=== PATIENT | female | born 1945 | race Caucasian/White ===

== ENCOUNTER → 2017-07-14 | Outpatient (CLI) | payer BC, MEDICARE ==
[~2017-07-14] MED LIST: IOHEXOL 180 MG/ML 10 ML VIAL.; methylPREDNISolone ACETATE 40 MG/ML VIAL.; methylPREDNISolone ACETATE 80 MG/ML VIAL.
== END | disposition home or self-care (01) ==
LOC: PNCL 13:54
DX: M48.061 Spinal stenosis, lumbar region without neurogenic claudication (principal); M54.16 Radiculopathy, lumbar region; M96.1 Postlaminectomy syndrome, not elsewhere classified; M19.90 Unspecified osteoarthritis, unspecified site; K21.9 Gastro-esophageal reflux disease without esophagitis; I10 Essential (primary) hypertension; Z88.1 Allergy status to other antibiotic agents
CPT/HCPCS: 62323; J1030; J1040; Q9965

== ENCOUNTER → 2017-10-14 | Outpatient (CLI) | payer BC, MEDICARE | END | disposition home or self-care (01) | LOC: PNCL 09:24 | DX: M48.061 Spinal stenosis, lumbar region without neurogenic claudication (principal); M54.16 Radiculopathy, lumbar region; M96.1 Postlaminectomy syndrome, not elsewhere classified; Z88.1 Allergy status to other antibiotic agents | CPT/HCPCS: 62323; J1030; J1040; Q9965 ==

== ENCOUNTER → 2017-11-20 | Outpatient (CLI) | payer BC, MEDICARE ==
[~2017-11-20] MED LIST changes: +LIDOCAINE 1% PF 2 ML VIAL.
== END ==
LOC: PNCL 07:58
DX: M54.16 Radiculopathy, lumbar region (principal); M96.1 Postlaminectomy syndrome, not elsewhere classified; Z88.1 Allergy status to other antibiotic agents
CPT/HCPCS: 62323; J1030; J1040; Q9965

== ENCOUNTER → 2017-12-21 | Outpatient (CLI) | payer BC, MEDICARE ==
[2017-12-21] MEDS: LIDOCAINE WITH 8.4% SOD BICARB 3 ML DISP.SYRIN. INJ (14:05)
[2017-12-21] MEDS: IOHEXOL 180 MG/ML 10 ML VIAL. IT (14:05)
== END | disposition home or self-care (01) ==
LOC: RAD 13:59
DX: M43.16 Spondylolisthesis, lumbar region (principal); M48.061 Spinal stenosis, lumbar region without neurogenic claudication; M48.07 Spinal stenosis, lumbosacral region; I10 Essential (primary) hypertension; K21.9 Gastro-esophageal reflux disease without esophagitis
CPT/HCPCS: 72132; 72265; Q9965

== ENCOUNTER → 2018-02-10 | Outpatient (CLI) | payer BC, MEDICARE ==
[2017-12-21 15:03] VITALS: BP 114/64
[~2018-02-10] MED LIST changes: +AMLO1TAB2 PO; +BYSTOLIC5 MG PO; +CALC-31 PO; +CELE100C PO; +CHOL10003 PO; +DULO60CA6 PO; +ESOM40CA PO; -IOHEXOL 180 MG/ML 10 ML VIAL.; +IOHEXOL 180 MG/ML 10 ML VIAL. ONE; -LIDOCAINE 1% PF 2 ML VIAL.; +LIDOCAINE 2% PF 2ML VIAL. ONE; +LOSA1TAB2 PO; +MELO15TA23 PO; +METH2.5T PO; +SPIR25TA5 PO; +TRAZ-85 PO; -methylPREDNISolone ACETATE 40 MG/ML VIAL.; +methylPREDNISolone ACETATE 40 MG/ML VIAL. ONE; -methylPREDNISolone ACETATE 80 MG/ML VIAL.; +methylPREDNISolone ACETATE 80 MG/ML VIAL. ONE
--- NOTE | 2018-02-10 19:41 | PAIN ---
DATE OF SERVICE: 02/10/2018 PROGRESS NOTE FOR PAIN CLINIC DIAGNOSIS: Lumbar radiculopathy with lumbar spinal stenosis and post-lumbar laminectomy syndrome. HISTORY OF PRESENT ILLNESS: The patient is a 72-year-old female who returns for followup status post caudal epidural steroid injections x 3, last seen on 11/20/2017. The patient did very well, nearly 100% improvement for a full month after the last injection. The patient reports the pain is beginning to return now in the low back and into the right lower extremity, more in the posterior gluteus, posterior thigh, posterior calf on the right side and across the low back into the left hip and thigh as well. The patient reports it is tingling, burning, dull, shooting, radiating, becoming more intense, on and off, worse with inactivity. The patient reports it is a 9 on a scale of 10 at its worst, 6 on average, 4 at its least and is a 4 today. The patient reports no new motor or sensory deficits, no new bowel or bladder incontinence. Originally, she was doing much better with increasing activity with walking, household activities with greater ease and comfort, feeling better at night, now it is waking her about every 4-5 hours. She has to reposition and she can usually get back to sleep. The patient reports no new motor or sensory deficits, no new bowel or bladder incontinence. The patient did have a new myelogram showing previous surgical fusion and L5-S1 bilateral foraminal narrowing. PHYSICAL EXAMINATION: VITAL SIGNS: Today, the patient's blood pressure 124/71, pulse 75, respirations are 18, temperature 98.1 degrees Fahrenheit. Height is 5 feet 4 inches, weight is 184 pounds. GENERAL: The patient is awake, alert, oriented, appropriate, very pleasant demeanor. HEENT: Head shows normocephalic, atraumatic. Extraocular movements are intact and symmetrical. Oral cavity, mucous membranes are moist and pink. Dentition is intact. NECK: Shows anterior throat supple without palpable lymphadenopathy noted. Swallow reflex is symmetrical. CHEST: Shows normal on inspection. Breath sounds are clear to auscultation bilaterally. HEART: Shows S1, S2 clear. No murmurs auscultated. ABDOMEN: Soft, nontender, nondistended. No palpable organomegaly is noted. No rebound or guarding demonstrated. BACK: Shows spine grossly in the midline. Normal appearing thoracic kyphosis and some flattening of lumbar lordotic curvature. There is a well-healed surgical scar in the lumbar distribution noted. The patient's lumbar paraspinous muscle shows symmetrical on inspection, on palpation shows some moderate tenderness but only diffusely without radiation. The patient shows good rotational motion of lumbar spine, both laterally as well as extension and flexion without significant radiation or tenderness. EXTREMITIES: The patient's lower extremities show deep tendon reflexes at 1+ in the patellar and tendo-calcaneus tendons and are equal. Motor exam is strong with 5/5 dorsiflexion, extension, quadriceps and hamstring flexion and symmetrical. Peripheral pulses are 1+ posterior tibia. No peripheral edema is noted bilaterally. Options were discussed with the patient. The patient's old chart was reviewed as her current medication regimen updated. Current review of systems updated today as well. We will proceed with a caudal approach epidural steroid injection today, it is the first in the series. Risks were again discussed including, but not limited to bleeding, infection, possibility of epidural hematoma and subsequent neurological compromise, dural puncture, headaches, spinal cord and/or nerve damage, side effects of steroid medication and poor results regarding pain control. The patient understands and wished to proceed. The patient will return to the clinic in approximately 2 weeks for followup, was counseled on return appointment, activity level and side effects to be aware of. DIAGNOSIS: Lumbar radiculopathy with lumbar spinal stenosis and lumbar post-laminectomy syndrome. PROCEDURE: Lumbar epidural steroid injection, caudal approach using C-arm fluoroscopic guidance under sterile prep and drape using local anesthetic. MEDICATION INJECTED: A total of 120 mg Depo-Medrol plus 10 mL of preservative-free normal saline and 2 mL of Isovue for contrast. CONDITION AT DISCHARGE: Stable. The patient tolerated the procedure well, had no complications. ROBER NAVARRO MD DR: LATIA/kathleen JOB#: [id number] / [id number]
== END | disposition home or self-care (01) ==
LOC: PNCL 10:41
PROVIDERS: ATTEND Anesthesiology
DX: M48.061 Spinal stenosis, lumbar region without neurogenic claudication (principal); M96.1 Postlaminectomy syndrome, not elsewhere classified; Z88.1 Allergy status to other antibiotic agents
CPT/HCPCS: 62323; J1030; J1040; J2001; Q9965

== ENCOUNTER → 2018-04-30 | Outpatient (CLI) | payer BC, MEDICARE ==
[2017-12-21 15:03] VITALS: BP 114/64
[~2018-04-30] MED LIST changes: -LIDOCAINE 2% PF 2ML VIAL. ONE
--- NOTE | 2018-04-30 12:16 | PAIN ---
DATE OF SERVICE: 04/30/2018 PROGRESS NOTE FOR PAIN CLINIC DIAGNOSES: Lumbar radiculopathy with lumbar spinal stenosis, lumbar post-laminectomy syndrome. HISTORY OF PRESENT ILLNESS: The patient is a 72-year-old female who returns for followup status post lumbar epidural steroid injection, caudal approach x 1 on 02/10/2018. The patient did very well with about 80% improvement for about a month. The patient reports after that time, the pain returned in her low back and right lower extremity, radiating to the posterior lateral and anterior aspects of the gluteus, posterior calf, posterior thigh, lateral thigh, anterior calf as well as the lower leg anteriorly. The patient reports it is aching, dull, shooting, tingling, burning, radiating, becoming more severe with time. The patient reports the first month or so, it is very well and then the pain gradually returned. The patient reports it wakes her from sleep about every 4 hours, she can usually reposition and get back to sleep. The patient reports no new motor or sensory deficits, rates her pain as a 9 on a scale of 10 at its worst, 6 on average and 3 at its least and is a 6 today. The patient reports no new motor or sensory deficits, no bowel or bladder incontinence. PHYSICAL EXAMINATION: VITAL SIGNS: The patient's blood pressure is 127/57, pulse 80, respirations 18, temperature 97.5 degrees Fahrenheit, height 5 feet 5 inches, weighs 184 pounds. GENERAL: The patient is awake, alert, oriented, appropriate, very pleasant demeanor. HEENT: Head shows normocephalic, atraumatic. Extraocular movements intact and symmetrical. Oral cavity: Mucous membranes moist and pink. Dentition is intact. NECK: Shows anterior throat supple without palpable lymphadenopathy noted. Swallow reflex is symmetrical. CHEST: Shows normal on inspection. Breath sounds clear to auscultation bilaterally. HEART: Shows S1, S2 clear. No murmurs auscultated. ABDOMEN: Soft, nontender, nondistended. No palpable organomegaly is noted. No rebound or guarding demonstrated. BACK: Shows spine grossly in the midline, normal appearing thoracic kyphosis and lumbar lordotic curvature. Lumbar paraspinous muscle shows symmetrical on inspection, on palpation shows some moderate tenderness diffusely bilaterally, but only diffusely in the lower lumbar distribution. Well-healed surgical scar is noted. The patient has good rotational motion of lumbar spine, both laterally as well as extension and flexion without significant difficulty. EXTREMITIES: The patient's lower extremities show deep tendon reflexes 1+ in the patellar and tendo-calcaneus tendons are equal. Motor examination is 5/5 in dorsiflexion, extension and symmetrical. Peripheral pulses are 1+ posterior tibia. No peripheral edema is noted bilaterally. PLAN: Options were discussed with the patient. The patient's old chart was reviewed as her current medication regimen updated. Current review of systems updated today as well. We will proceed with a second in the series of lumbar epidural steroid injection, caudal approach using C-arm fluoroscopic guidance. Risks were again discussed including, but not limited to bleeding, infection, possibility of epidural hematoma, subsequent neurological compromise, dural puncture, headaches, spinal cord and/or nerve damage, side effects of steroid medication and poor results regarding pain control. The patient understands and wished to proceed. The patient to return to clinic in approximately 2 weeks for followup, was counseled on return appointment, activity level and side effects to be aware of. DIAGNOSES: Lumbar radiculopathy with lumbar spinal stenosis, post-lumbar laminectomy syndrome. PROCEDURE: Caudal approach epidural steroid injection using C-arm fluoroscopic guidance under sterile prep and drape using local anesthetic. MEDICATION INJECTED: A total of 120 mg Depo-Medrol plus 10 mL of preservative-free normal saline and 2 mL of Isovue for contrast. CONDITION AT DISCHARGE: Stable. The patient tolerated the procedure well, had no complications. ROBER NAVARRO MD DR: LATIA/kathleen JOB#: [id number] / [id number]
== END | disposition home or self-care (01) ==
LOC: PNCL 07:41
PROVIDERS: ATTEND Anesthesiology
DX: M48.02 Spinal stenosis, cervical region (principal); M54.16 Radiculopathy, lumbar region; M96.1 Postlaminectomy syndrome, not elsewhere classified; Z88.1 Allergy status to other antibiotic agents
CPT/HCPCS: 62323; J1030; J1040; Q9965

== ENCOUNTER → 2018-06-16 | Outpatient (CLI) | payer BC, MEDICARE ==
[2017-12-21 15:03] VITALS: BP 114/64
[~2018-06-16] MED LIST changes: +ATOR20TA PO; +DOCU-109 PO; +HYDR-3164 PO; +LIDOCAINE ID; +METH25VI27 IJ; +METH750T2 PO; +OXYC1TAB15 PO; +TRAZ-118 PO; -TRAZ-85 PO
--- NOTE | 2018-06-16 09:43 | PAIN ---
DATE OF SERVICE: 06/16/2018 DIAGNOSES: 1. Lumbar radiculopathy with lumbar spinal stenosis. 2. Post-lumbar laminectomy syndrome. HISTORY OF PRESENT ILLNESS: This patient is a 73-year-old female who returns for followup status post caudal epidural steroid injection x 2, last seen on 04/30/2018. The patient did very well with about 90% improvement for the first month, then the pain began to return in the low back and into the right greater than left lower extremity. The patient reports it is in the posterior gluteus, posterior thigh, lateral thigh, anterior thigh, posterior calf, posterior heel and foot. The patient reports it is 9 on a scale of 10 at its worst, 6 on an average, 3 at its least and is 6 today. The patient reports it is sharp and alternating with dull in the back and into the leg. It is tingling, burning, cramping, radiating, becoming more severe; worse with walking, standing, changing positions; better with sitting or lying down; does not awaken her from sleep at night. The patient reports no new motor or sensory deficits, no new bowel or bladder incontinence or other complaints. PHYSICAL EXAMINATION: VITAL SIGNS: The patient's blood pressure is 131/73, pulse 68, respirations 18, temperature is 98.7 degrees Fahrenheit. Height is 5 feet 5 inches, weight is 180 pounds. GENERAL: She is awake, alert, oriented, appropriate, very pleasant demeanor. HEENT: Head shows normocephalic, atraumatic. Extraocular movements are intact and symmetrical. Oral cavity: Mucous membranes moist and pink. Dentition is intact. NECK: Shows anterior throat supple without palpable lymphadenopathy noted. Swallow reflex is symmetrical. CHEST: Shows normal with inspection. Breath sounds clear to auscultation bilaterally. HEART: Shows S1, S2 clear. No murmurs auscultated. ABDOMEN: Soft, nontender, nondistended. No palpable organomegaly is noted. No rebound or guarding demonstrated. BACK: Shows spine grossly in the midline. Normal-appearing thoracic kyphosis and lumbar lordotic curvature with flattening of lordotic curvature. Lumbar paraspinous muscle shows symmetrical on inspection, well-healed surgical scar is noted; with palpation, it shows some moderate tenderness diffusely bilaterally in the lumbar paraspinous muscles, but only diffusely without radiation, right and left equal, no trigger points. The patient shows good rotation of motion both laterally as well as extension and flexion without exacerbation of pain. EXTREMITIES: Lower extremities show deep tendon reflexes 1+ in the patellar and tendo calcaneus tendons and are equal. Motor exam is strong with 5/5 dorsiflexion, extension, quadriceps and hamstring flexion, symmetrical bilaterally. Peripheral pulses are 1+ posterior tibia. No peripheral edema is noted. Options were discussed with the patient. The patient's old chart was reviewed as was her current medication regimen updated. Current review of systems updated today as well. We will proceed with a third in the series of caudal epidural steroid injection using C-arm fluoroscopic guidance. Risks were again discussed including, but not limited to bleeding, infection, possibility of epidural hematoma, subsequent neurologic compromise, dural puncture, headaches, spinal cord and/or nerve damage, side effects of steroid medication and poor results regarding pain control. The patient understands and wished to proceed. The patient to return to clinic in approximately 2 weeks for followup, was counseled as to return appointment, activity level and side effects to be aware of. DIAGNOSES: . Lumbar radiculopathy with lumbar spinal stenosis. 2. Post-lumbar laminectomy syndrome. PROCEDURE: Caudal approach epidural steroid injection using C-arm fluoroscopic guidance under sterile prep and drape using local anesthetic. MEDICATION INJECTED: A total of 120 mg Depo-Medrol plus 10 mL of preservative-free normal saline and 2 mL of Isovue for contrast. CONDITION AT DISCHARGE: Stable. The patient tolerated the procedure well, had no complications. ROBER NAVARRO MD DR: LATIA/kathleen JOB#: [id number] / [id number]
== END | disposition home or self-care (01) ==
LOC: PNCL 08:54
PROVIDERS: ATTEND Anesthesiology
DX: M48.061 Spinal stenosis, lumbar region without neurogenic claudication (principal); M54.16 Radiculopathy, lumbar region; M96.1 Postlaminectomy syndrome, not elsewhere classified; Z88.1 Allergy status to other antibiotic agents
CPT/HCPCS: 62323; J1030; J1040; Q9965

== ENCOUNTER → 2018-08-25 | Outpatient (CLI) | payer BC, MEDICARE ==
[2017-12-21 15:03] VITALS: BP 114/64
[~2018-08-25] MED LIST changes: -IOHEXOL 180 MG/ML 10 ML VIAL. ONE; -methylPREDNISolone ACETATE 40 MG/ML VIAL. ONE; -methylPREDNISolone ACETATE 80 MG/ML VIAL. ONE
--- NOTE | 2018-08-26 04:02 | PAIN ---
DATE OF SERVICE: 08/25/2018 PROGRESS NOTE FOR PAIN CLINIC DIAGNOSES: Lumbar radiculopathy with lumbar spinal stenosis, lumbar post-laminectomy syndrome. HISTORY OF PRESENT ILLNESS: The patient is a 73-year-old female who returns for followup status post lumbar epidural steroid injection in caudal approach most recently on 06/16/2017. The patient did well, but 100% improved for about 3 weeks, but the pain returned after that time in the low back, bilateral lower extremities, worse on the right than the left posterior gluteus, radiating to the posterior thigh, posterior calf into the ankle on the right side, some in the posterior gluteus and thigh on the left, but much worse on the right. The patient reports a 9-10 on a scale of 10 at its worst, 7 on average, 4 at its least and is a 7 today. The patient describes it as burning, stabbing, sharp, becoming more constant, more severe, radiated pain in the right leg. The patient reports no new motor or sensory deficits, no new bowel or bladder incontinence, has been waking her up from sleep once again. Initially, she was doing much better with distance walking and doing work and household activities, greater increase in ease with traveling, now the pain is beginning to limit some of these activities as well. The patient reports she is feeling somewhat ill to her stomach over the past 2-3 days and has been around a friend who had the flu and is indeed running a low-grade fever today and would like to hold on any further injections at this time. PHYSICAL EXAMINATION: VITAL SIGNS: The patient's blood pressure is 131/69, pulse 66, respirations 16, temperature 99.1 degrees Fahrenheit, height is 5 feet 3-1/2 inches and weight is 181 pounds. GENERAL: The patient is awake, alert, oriented, appropriate, very pleasant demeanor. HEENT: Head is normocephalic, atraumatic. Extraocular muscles are intact and symmetrical. Oral cavity: Mucous membranes moist and pink. Dentition is intact. NECK: Shows anterior throat supple without palpable lymphadenopathy noted. Swallow reflex is symmetrical. CHEST: Shows normal on inspection. Breath sounds are clear to auscultation bilaterally. HEART: Shows S1, S2 clear. No murmurs auscultated. ABDOMEN: Soft, nontender, nondistended. No palpable organomegaly is noted. No rebound or guarding demonstrated. BACK: Shows spine grossly in the midline. Normal appearing thoracic kyphosis, significant flattening of lumbar lordotic curvature. Well-healed surgical scarring noted, which is fairly extensive. Lumbar paraspinous muscle shows symmetrical on inspection grossly, with palpation has diffuse tenderness throughout the upper, middle, lower distribution of paraspinous muscles, but without radiation. EXTREMITIES: Lower extremities show deep tendon reflexes 1+ in patellar and tendo-calcaneus tendons. Motor exam is 5/5 in dorsiflexion, extension, quadriceps and hamstring flexion and intact. Peripheral pulses are 1+ in posterior tibial. No peripheral edema is noted. Options were discussed with the patient. The patient's old chart was reviewed as her current medication regimen updated. Current review of systems updated today as well. We will have the patient return in about 2 days for reevaluation and hopefully lower or afebrile at that time. Again, the patient is feeling ill for the past 2 to 3 days, would like to wait and see how she feels in another few days and I agree this may be beneficial for her feeling better overall and would like to see her afebrile prior to proceeding with any procedures. The patient will return to the clinic in approximately 2 days. Tentatively, we will call if still febrile or ill at that time and will plan on epidural steroid injection on her return. ROBER NAVARRO MD DR: LATIA/kathleen JOB#: [id number] / [id number]
== END | disposition home or self-care (01) ==
LOC: PNCL 11:38
PROVIDERS: ATTEND Anesthesiology
DX: M54.16 Radiculopathy, lumbar region (principal); M48.061 Spinal stenosis, lumbar region without neurogenic claudication; M96.1 Postlaminectomy syndrome, not elsewhere classified
CPT/HCPCS: G0463

== ENCOUNTER → 2018-08-27 | Outpatient (CLI) | payer BC, MEDICARE ==
[2017-12-21 15:03] VITALS: BP 114/64
[~2018-08-27] MED LIST changes: +IOHEXOL 180 MG/ML 10 ML VIAL. ONE; +methylPREDNISolone ACETATE 40 MG/ML VIAL. ONE; +methylPREDNISolone ACETATE 80 MG/ML VIAL. ONE
--- NOTE | 2018-08-28 05:13 | PAIN ---
DATE OF SERVICE: 08/27/2018 PROGRESS NOTE FOR PAIN CLINIC DIAGNOSES: Lumbar radiculopathy with lumbar spinal stenosis and lumbar post-laminectomy syndrome. HISTORY OF PRESENT ILLNESS: The patient is a 73-year-old female who returns for followup status post lumbar caudal approach epidural steroid injection most recently in 06/2017. The patient reports since her pain is coming back, she is considering surgery for her lumbar spine. There is still significant pain in her low back, currently into the right lower extremity, posterior gluteus, posterior thigh, posterior calf into the foot on the right side as well. It is worse with walking, standing or changing positions. The patient reports it is better with sitting or lying down. It awakens her from sleep about every 5 hours. However, the patient reports it is a 9 on a scale of 10 at its worst, 6 on average and 3 at its least and I is a 3 today. The patient reports it is sharp, shooting, tingling, burning, cramping, stabbing, constant, becoming more severe and more radiating, but otherwise, it is very well with the injections, with about a 100% improvement for several weeks after the last injection, with pain returning now over the past several months. The patient reports no new motor or sensory deficits, no new bowel or bladder incontinence or other complaints. PHYSICAL EXAMINATION: VITAL SIGNS: The patient's blood pressure is 133/68, pulse is 76, respirations are 16 and temperature is 98.1 degrees Fahrenheit. Height is 5 feet 3 inches. GENERAL: The patient is awake, alert, oriented and appropriate. She has a very pleasant demeanor. HEENT EXAMINATION: Shows normocephalic, atraumatic. Extraocular movements are intact and symmetrical. Oral cavity, mucous membranes are moist and pink. Dentition is intact. NECK: Shows anterior throat supple, without palpable lymphadenopathy noted. Swallow reflex is symmetrical. CHEST: Shows normal on inspection. Breath sounds are clear to auscultation bilaterally. HEART: Shows S1 and S2 clear. No murmurs auscultated. ABDOMEN: Soft, nontender and nondistended. No palpable organomegaly is noted. No rebound or guarding demonstrated. BACK: Shows spine grossly in the midline. Normal-appearing thoracic kyphosis, some minor flattening of the lumbar lordotic curvature. Lumbar paraspinous muscle shows symmetrical on inspection. On palpation, it shows some moderate tenderness bilaterally, but only diffusely in the lower lumbar distribution, without radiation. The patient shows good rotational motion of the lumbar spine, both laterally as well as extension and flexion. EXTREMITIES: Lower extremities show deep tendon reflexes at 1+ in the patellar and tendo calcaneus tendons. Motor exam is strong with 5/5 dorsiflexion, extension, quadriceps and hamstring flexion and is equal and symmetrical. Peripheral pulses are 1+ posterior tibial. No peripheral edema is noted bilaterally. Options were discussed with the patient. The patient's old chart was reviewed as was her current medication regimen updated. Current review of systems updated today as well. We will proceed with caudal approach epidural steroid injection today with fluoroscopic guidance, the first in this series. Risks were again discussed including, but not limited to bleeding, infection, possibility of epidural hematoma, subsequent neurological compromise, dural puncture, headaches, spinal cord and/or nerve damage, side effects of steroid medication and poor results regarding pain control. The patient understands and wishes to proceed. The patient will return to clinic in approximately 2 weeks for followup. She was counseled on her return appointment, activity level and side effects to be aware of. DIAGNOSES: Lumbar radiculopathy with lumbar spinal stenosis and lumbar post-laminectomy syndrome. PROCEDURE: Caudal approach epidural steroid injection using C-arm fluoroscopic guidance under sterile prep and drape using local anesthetic. MEDICATION INJECTED: A total of 120 mg Depo-Medrol plus 10 mL of preservative-free normal saline and 2 mL of Isovue for contrast. CONDITION AT DISCHARGE: Stable. The patient tolerated the procedure well, had no complications. ROBER NAVARRO MD DR: LATIA/kathleen JOB#: [id number] / [id number]
== END | disposition home or self-care (01) ==
LOC: PNCL 11:34
PROVIDERS: ATTEND Anesthesiology
DX: M48.061 Spinal stenosis, lumbar region without neurogenic claudication (principal); M96.1 Postlaminectomy syndrome, not elsewhere classified; M54.16 Radiculopathy, lumbar region; Z88.1 Allergy status to other antibiotic agents
CPT/HCPCS: 62323; J1030; J1040; Q9965

== ENCOUNTER → 2018-09-23 | Outpatient (CLI) | payer BC, MEDICARE ==
[2017-12-21 15:03] VITALS: BP 114/64
[~2018-09-23] MED LIST changes: -IOHEXOL 180 MG/ML 10 ML VIAL. ONE; -methylPREDNISolone ACETATE 40 MG/ML VIAL. ONE; -methylPREDNISolone ACETATE 80 MG/ML VIAL. ONE
--- NOTE | 2018-09-23 15:05 | EKG ---
[facility] [address] [place] [address] Test Date: 2018-09-23 Test Time: 15:04:30 Pat Name: DYLON JESSICA Department: Room: Gender: F Under [facility]: [facility] : 1945 Requested By: RAJ URBINA Order Number: [id number] Reading MD: Justo Baltazar Measurements Intervals [place] Rate: 69 P: 52 [place]: 188 QRS: -18 QRSD: 78 T: 31 QT: 376 QTc: 404 Interpretive Statements SINUS RHYTHM LEFTWARD AXIS Electronically Signed On 09-28-2018 11:15:06 CDT by Justo Baltazar
[2018-09-23 15:10] LABS: BASO % 1 % (0-3); EOS # 0.2 x10^3/uL (0.0-0.7); EOS % 2 % (0-3); HEMATOCRIT 35.8 % (36.0-47.0); HEMOGLOBIN 12.2 g/dL (12.0-15.5); LYMPH # 1.4 x10^3/uL (1.0-4.8); LYMPH % 17 % (24-48); MEAN CORPUSCULAR HEMOGLOBIN 30 pg (25-35); MEAN CORPUSCULAR HGB CONC 34 g/dL (31-37); MEAN CORPUSCULAR VOLUME 89 fL (79-100); MONO # 0.7 x10^3/uL (0.0-1.1); MONO % 8 % (0-9); NEUT % 73 % (31-73); PLATELET COUNT 335 x10^3/uL (140-400); RED BLOOD COUNT 4.05 x10^6/uL (3.50-5.40); RED CELL DISTRIBUTION WIDTH 13.6 % (11.5-14.5); WHITE BLOOD COUNT 8.3 x10^3/uL (4.0-11.0)
[2018-09-23 15:24] LABS: PROTHROMBIN TIME PATIENT 12.4 SEC (11.7-14.0)
[2018-09-23 15:36] LABS: ALBUMIN 3.6 g/dL (3.4-5.0); ALBUMIN/GLOBULIN RATIO 1.1 (1.0-1.7); CALCIUM 9.4 mg/dL (8.5-10.1); CREATININE 1.4 mg/dL (0.6-1.0); POTASSIUM 3.7 mmol/L (3.5-5.1); TOTAL BILIRUBIN 0.3 mg/dL (0.2-1.0)
== END | disposition home or self-care (01) ==
LOC: SURGPAT 13:36
PROVIDERS: ATTEND Neurological Surgery
DX: Z01.818 Encounter for other preprocedural examination (principal); M43.16 Spondylolisthesis, lumbar region; M54.16 Radiculopathy, lumbar region; M96.0 Pseudarthrosis after fusion or arthrodesis
CPT/HCPCS: 36415; 80053; 85025; 85610; 85730; 87641; 93005

== ENCOUNTER 2018-09-30 06:22 | Inpatient (IN) | payer BC, MEDICARE ==
--- NOTE | 2018-09-29 16:30 | PREOP HP ---
DATE OF SERVICE: 09/30/2018. DATE OF SURGERY: 09/30/2018. HISTORY OF PRESENT ILLNESS: The patient is a pleasant 73-year-old who I have operated on in the past. I performed a lumbar surgery on her in 2011. In 2014, she underwent a fusion at . I saw her in 05/2018 and recommended revision of her fusion at L4-L5. Her problem is low back pain and right anterolateral thigh and leg pain. She said her pain had become much more severe in 06/2017. She currently rates her pain as a 5/10. Lying down increases her pain. Walking helps her. She has had epidural steroid injections recently, which she feels has helped her some. PAST MEDICAL HISTORY: Hypertension, arthritis, headache, heart murmur, artificial joint, mitral valve prolapse. PAST SURGICAL HISTORY: Lumbar surgery in 2011 by me, carpal tunnel release, hysterectomy, lumbar fusion at in 2014. FAMILY HISTORY: Hypertension, migraine headaches and spine problems. SOCIAL HISTORY: She is employed as an movie editor. . Rarely exercises. Denies substance abuse. Denies tobacco use. Drinks alcohol 1-2 times per week. Drinks coffee and tea daily. ALLERGIES: PENICILLIN. CURRENT MEDICATIONS: Aleve, calcium, vitamin D3, omega-3, trazodone, Nexium, Caduet, spironolactone, Hyzaar, meloxicam, Cymbalta, Bystolic, gabapentin and glycopyrrolate. REVIEW OF SYSTEMS: A 12-point review of systems was obtained and is noncontributory except for that mentioned above. PHYSICAL EXAMINATION: NEUROSURGERY EXAMINATION: GENERAL APPEARANCE: Alert, pleasant, no acute distress. HEAD: Normocephalic and atraumatic. SKIN: Warm and dry. MUSCULOSKELETAL: Lumbar paraspinal muscle bulk is normal, restricted range of motion of lumbar spine, vlwh-fu-[id number] tenderness of the lower lumbar spine to palpation, especially on the right. Normal range of motion of the lower extremities bilaterally. EXTREMITIES: No clubbing, cyanosis or edema. NEUROLOGIC: Alert and oriented x 3, normal recent and remote memory, strength 5/5 in bilateral lower extremities. There is normal sensation in her lower extremities. She has trace reflexes at the knees and ankles bilaterally. There is positive straight leg raising on the right with back and right buttock and posterior thigh pain. There is negative straight leg raising on the left. Normal gait. IMAGING: I reviewed her images from her previous MRI scan, which there is a small grade 1 anterolisthesis in postoperative images. I reviewed a lumbar myelogram from 11/2017, in which the amount of spondylosis has increased markedly from her previous MRI and now measures 8 mm. The spondylolisthesis changes from 6-8 mm when comparing flexion and extension views. There does appear to be some rounding of the L5 screws. There is poor filling of the L5 roots bilaterally. Additionally, I reviewed flexion and extension x-rays. There are no significant changes at L4-L5; however, at L5-S1, there is worsening of an anterolisthesis, which does appear to have motion when comparing with the upright plain x-ray with supine MRI. PLAN: At this point, I believe she has motion and pseudoarthrosis at L4-L5 and L5-S1. She will require revision of her instrumentation at L4-L5 and L5-S1 with an anterior discectomy and fusion from an anterolateral oblique approach. She will also have posterolateral fusion. I did discuss this with her. At this point, she would like to go ahead. We will make the arrangements. She agrees. RAJ URBINA MD DR: MARGARITA/kathleen JOB#: [id number] / [id number] CAROL ANN
[~2018-09-30] VITALS: Ht 160 cm; Wt 82.6 kg
[2018-09-30] VITALS (8 sets, daily range): BP systolic 82–131; BP diastolic 49–68
[~2018-09-30 06:22] MED LIST changes: +BACITRACIN 50,000 UNIT in IV NORMAL SALINE 1000ML BAG 1,000 ML IRR ONE; +BUPIVAC MPF-EPI 0.5%-1:200000 30 ML VIAL. ONE; -DULO60CA6 PO; +GELATIN SPONGE SIZE 100. ONE; +KETOROLAC 60 MG/2 ML INJ FOR OR. ONE; -METH750T2 PO; -OXYC1TAB15 PO; +THROMBIN TOPICAL 20,000 UNIT SPRAY.SYRN KIT TP ONE; +VANCOMYCIN 1GM IVPB FOR OMNI 250 ML IV PRN
[2018-09-30] MEDS ORDERED: ONDANSETRON PF 4 MG/2 ML VIAL. IV PRN ×2 (07:00→10:00)
[2018-09-30] MEDS ORDERED: IV RINGERS,LACTATED 1000ML 1,000 ML IV SCH (07:00)
[2018-09-30] MEDS ORDERED: fentaNYL PF VIAL 100 MCG/2 ML VIAL IV PRN ×2 (07:00→10:00)
[2018-09-30] MEDS ORDERED: PROPOFOL 100 ML IV ONE ×2 (07:12→11:56)
[2018-09-30] MEDS ORDERED: VANCOMYCIN 1GM IVPB FOR OMNI. ONE (08:00)
[2018-09-30] MEDS ORDERED: PHENYLEPHRINE in 0.9% NACL PF 1 MG/10 ML SYRINGE. IV ONE (08:16)
[2018-09-30] MEDS ORDERED: PROPOFOL 20 ML IV ONE (08:18)
[2018-09-30] MEDS ORDERED: ONDANSETRON PF 4 MG/2 ML VIAL. ONE (08:19)
[2018-09-30] MEDS ORDERED: DEXAMETHASONE SOD PHOS 20 MG/5 ML VIAL. ONE ×2 (08:19→13:43)
[2018-09-30] MEDS ORDERED: fentaNYL PF VIAL 100 MCG/2 ML VIAL ONE ×3 (08:19→14:06)
[2018-09-30] MEDS ORDERED: REMIFENTANIL 2 MG VIAL. IV ONE (08:19)
[2018-09-30] MEDS ORDERED: LIDOCAINE 2% PF 5 ML VIAL. ONE (08:19)
[2018-09-30] MEDS ORDERED: SUCCINYLCHOLINE 200 MG/10 ML VIAL. ONE (08:21)
[2018-09-30] MEDS ORDERED: ROCURONIUM 50 MG/5 ML VIAL. ONE (08:21)
[2018-09-30] MEDS ORDERED: GELATIN SPONGE SIZE 100. ONE (08:45)
[2018-09-30] MEDS ORDERED: DESFLURANE > 120 MINUTES IH ONE ×2 (09:01→13:24)
[2018-09-30] MEDS ORDERED: KETAMINE HCL IN NACL, ISO-OSM 50 MG/5 ML SYRINGE ONE (09:04)
--- NOTE | 2018-09-30 09:20 | RAD ---
CT LUMBAR SPINE WO CONTRAST Indication: Low back pain, pseudarthrosis, spondylosis, previous lumbar fusion Technique: Noncontrast CT imaging was performed of the lumbar spine for the purpose of assistance in surgery, multiplanar reconstruction images submitted. One or more of the following individualized dose reduction techniques were utilized for this examination: 1. Automated exposure control 2. Adjustment of the mA and/or kV according to patient size 3. Use of iterative reconstruction technique. Comparison: December 21, 2017 Findings: Most inferior fully formed intervertebral disc space is considered L5-S1, assumption of 5 lumbar type vertebral bodies. There is grade 1 anterior spondylolisthesis at what is considered L4-5 and negligible anterior spondylolisthesis at L5-S1. There are again bilateral pedicle screws at what is considered L4 and L5 attached to vertical rods. Tip of the left L5 pedicle screw protrudes just beyond the anterior cortex as seen previously, also very mild lucency about the left L5 pedicle screw unchanged. Lumbar vertebral body stature is unchanged, within normal limits. There is again moderate to severe narrowing of the L4-5 intervertebral disc space, mild L5-S1 degenerative disc disease with associated vacuum disc disease. There is also mild L2-3 degenerative disc disease. There is atherosclerotic calcification of abdominal aorta. There is artifact in the pelvis created by bilateral hip arthroplasties. There is exophytic lesion protruding medially from the spleen otherwise difficult to characterize estimated about 2.3 cm in size, does not have density characteristics of a simple cyst. L2-3: There is facet degenerative change and mild buckling of the ligamentum flavum. Spinal canal and neural foramina are not significantly narrowed. L3-L4: There is again bilateral facet hypertrophic change and mild buckling of the ligamentum flavum flavum. There is prominence of posterior epidural fat. There is likely mild narrowing of the left lateral recess from posteriorly by facet. Neural foramina are not significantly narrowed. L4-L5: There again has been posterior decompression, spinal canal not significantly narrowed. There is partial uncovering of the posterior aspect of the disc due to spondylolisthesis. There is likely owfp-df-topwduoy narrowing of the more distal right neural foramen, minimal narrowing on the left, bulge near the undersurfaces exiting L4 nerve roots bilaterally. L5-S1: There again has been posterior decompression. There is facet hypertrophic change. Spinal canal is overall adequate. There is posterior bulge somewhat greater in the left lateral recess. There is ufyp-nv-mitygsxt narrowing of the right neural foramen, also contact of the undersurface of exiting right L5 nerve root in the more distal neural foramen by disc osteophyte complex and superimposed bulge/protrusion. There is likely overall mild narrowing of the left neural foramen. IMPRESSION: 1. Most inferior fully formed intervertebral disc space is considered L5-S1 as described, posterolateral fusion hardware and grade 1 anterior spondylolisthesis at what is considered L4-5. No significant lumbar spinal stenosis is identified, likely mild narrowing left lateral recess L3-4. There is mild to moderate neural foramina compromise as described such as bilaterally at L4-5 and on the right at L5-S1. There is degenerative disc disease greatest at L4-5, to lesser degree at L2-3 and L5-S1. 2. There is indeterminate lesion projecting medially from the spleen, not fully evaluated. Electronically signed by: Wai Vega MD (09/30/2018 9:17 AM) [email or web address]
[2018-09-30] MEDS ORDERED: GLYCOPYRROLATE 1 MG/5 ML VIAL. ONE ×2 (09:26→13:23)
[2018-09-30] MEDS ORDERED: NALOXONE 0.4 MG/ML VIAL. IV PRN (10:00)
[2018-09-30] MEDS ORDERED: MAG HYDROX/ALUMINUM HYD/SIMETH 30 ML ORAL.SUSP PO PRN (10:00)
[2018-09-30] MEDS ORDERED: oxyCODONE/APAP 5/325 1 TAB TABLET PO PRN (10:00)
[2018-09-30] MEDS ORDERED: MAGNESIUM HYDROXIDE 2,400 MG/30 ML ORAL.SUSP. PO PRN (10:00)
[2018-09-30] MEDS ORDERED: ACETAMINOPHEN 325 MG TABLET. PO PRN (10:00)
[2018-09-30] MEDS ORDERED: CALCIUM CARBONATE 500 MG TAB.CHEW PO PRN (10:00)
[2018-09-30] MEDS ORDERED: diphenhydrAMINE HCL 25 MG CAPSULE PO PRN (10:00)
[2018-09-30] MEDS ORDERED: 0.9 % SODIUM CHLORIDE 10 ML DISP.SYRIN. IV PRN (10:00)
[2018-09-30] MEDS ORDERED: VANCOMYCIN 1 GM in IV NORMAL SALINE 250ML 250 ML IV ONE ×2 (10:15→21:00)
[2018-09-30] MEDS ORDERED: PHENYLEPHRINE 10 MG/ML VIAL. ONE (10:17)
[2018-09-30] MEDS ORDERED: PROPOFOL 50 ML IV ONE (11:50)
[2018-09-30] MEDS: POTASSIUM CL 20MEQ D5-0.45NACL 1,000 ML IV SCH (12:00)
[2018-09-30] MEDS ORDERED: REMIFENTANIL 1 MG VIAL. IV ONE (12:41)
[2018-09-30] MEDS ORDERED: NEOSTIGMINE METHYLSULFATE 5 MG/5 ML SYRINGE. ONE (13:23)
[2018-09-30] MEDS: fentaNYL PF VIAL 100 MCG/2 ML VIAL IV PRN ×4 (13:52→14:19)
[2018-09-30] MEDS: PROCHLORPERAZINE 10 MG/2 ML VIAL. IV PRN ×2 (14:09→15:03)
[2018-09-30] MEDS: MORPHINE SULFATE 2 MG/ML VIAL. IV PRN ×2 (14:20→14:33)
[2018-09-30] MEDS: HYDROmorphone 2 MG/ML VIAL IV PRN ×2 (14:43→15:03)
--- NOTE | 2018-09-30 14:53 | OP ---
DATE OF SURGERY: 09/30/2018 PREOPERATIVE DIAGNOSES: 1. Spondylolisthesis L4-L5 and L5-S1 with motion on flexion and extension. 2. Pseudoarthrosis, L4-L5. 3. Foraminal narrowing, L4-L5 right with right lumbar radiculopathy. POSTOPERATIVE DIAGNOSES: 1. Spondylolisthesis L4-L5 and L5-S1 with motion on flexion and extension. 2. Pseudoarthrosis, L4-L5. 3. Foraminal narrowing, L4-L5 right with right lumbar radiculopathy. OPERATION PERFORMED: 1. Transforaminal microdecompression, L4-L5, right. 2. Removal of hardware, L4-L5. 3. Placement of hardware, L4, L5, S1. 4. Posterolateral fusion, L4-L5, S1. 5. The operation was done with EMG and stimulated EMG monitoring, BrainLAB guidance, microscopic dissection, fluoroscopy. SURGEON: Juan Jose Urbina M.D. [employer] MANAGER: CARLOS Ingram assisted with the surgery. She assisted with the exposure, microdecompression, placement of hardware and closure. OPERATIVE INDICATIONS: The patient is a pleasant 73-year-old woman who developed intractable back and right leg pain, which failed conservative measures. In the past, she has undergone 2 previous surgeries, most recently an instrumented lumbar fusion at another institution at L4-L5. On her subsequent imaging studies, there was evidence of loosening of hardware at L4-L5 as well as development of spondylolisthesis at L5-S1 and I recommended decompression and instrumented fusion to deal with these problems. She understood the surgery, the risks, technique and expected postoperative course and wished to go ahead. DESCRIPTION OF PROCEDURE: Following general endotracheal anesthesia, the patient was positioned prone on the Ike table. The lumbar region was prepped and draped in standard fashion. GRAEME hose and AV impulse boots were applied for DVT prophylaxis. The microscope was draped. Fluoroscopy was draped and brought into the field. Monitoring was established. Vancomycin 1 gram was given less than 1 hour prior to initiation of surgery. Using fluoroscopic guidance, a midline incision was made extending from upper L4 to inferior S1. I dissected down through skin and subcutaneous tissue, reflected the paraspinal muscles and exposed the pedicle screw of L4 and then working down laterally in that she has had a wide central laminectomy, exposed the hardware of L5 and also the facets and region of the pedicles of S1. I also exposed the region lateral to the facets and transverse processes of L4, L5, S1 and then beginning on the left side, I removed the hardware at L4-L5. There was considerable loosening especially of the L5 screw and I then using the BrainLAB system, drilled into the facet/pedicle of S1 and passed the black ball followed by ball tip probe, followed by tap and I also re-tapped and found the appropriate sizes for the screws at L4 and L5. I did use the NuVasive system. I excoriated the lateral facets and the transverse processes. I aspirated 20 mL of bone marrow, placed this with allograft bone and packed this into the left lateral gutter after excoriation of the transverse processes was complete. I then placed screws in L4, L5 and S1. In L4 was a 6.5 x 40 screw, in L5 was an 8.5 screw, in S1 was another 6.5 screw. These were placed. The ted was placed and the nuts were placed, but the system not torqued. I then went to the right side in a similar fashion, exposed and tapped the S1 screw opening and removed the hardware from L4 and L5. I then re-tapped L4 and L5 to larger sizes, from which it would give good purchase. Again, I excoriated the transverse processes and lateral facets with a high-speed air drill through the microscope using microscopic technique. I packed allograft bone, which had been soaked in bone marrow into this region and then I moved up to the L4-L5 facet above the pedicle and using the high speed air drill, drilled down through the facet to expose the nerve root below and I followed this medially, laterally and I assured myself that the entire region was well decompressed. I then placed NuVasive screws into the tapped openings of L4, L5 and S1 and then the ted was placed and nuts were placed. I then distracted the right L5 and S1 screws to obtain an indirect foraminal decompression at that level. I torqued the nuts sequentially, first on the right side and then on the left side. I irrigated copiously with antibiotic solution. Fluoroscopic images looked excellent. I irrigated copiously, closed the wound in layers with frequent irrigation and the skin was closed with 4-0 subcuticular stitch. The operation went very well. Before beginning the case, I used the BrainLAB system by placing 2 small iliac pins into the left iliac crest and initializing the BrainLAB system, which was used throughout the operation. Microscopy was also used extensively throughout the surgery. Again, I felt the surgery went very well. JUAN JOSE URBINA MD DR: MARGARITA/kathleen JOB#: [id number] / [id number] CAROL ANN
--- NOTE | 2018-09-30 15:12 | NUR ---
Arrived to unit by bed from PACU. Drowsy but awakens when spoken to. Able to move all extremities. C/o right lower leg pain. Right leg elevated on pillow. GRAEME's and JAVAD's on bilaterally. IVF's intact and infusing. O2 at 3l per n/c. Side rails up x's 2 with call light in reach. Friend at bedside. Cont. monitor.
[2018-09-30] MEDS: METHOCARBAMOL 750 MG TABLET PO PRN ×2 (15:45→21:10)
--- NOTE | 2018-09-30 15:50 | NUR ---
C/o of right leg pain/cramping. Robaxin po given. Pt reposition on left side with pillows and ice pack. Still uncomfortable. Assisted up to bedside and still uncomfortable. Standing up with walker alleviated some of pain. Abhijit from [employer] here with LSO brace. Placed on patient. Stated it felt better. Now sitting in chair. Cont. monitor.
[2018-09-30] MEDS: oxyCODONE/APAP 5/325 1 TAB TABLET PO PRN ×2 (17:01→21:11)
--- NOTE | 2018-09-30 17:59 | NUR ---
Pt transferred to bigger room. Up in chair eating dinner. "pain is better". Cont. monitor.
--- NOTE | 2018-09-30 18:33 | NUR ---
Resting in bed quietly in bed. No c/o at this time.
[2018-09-30] MEDS ORDERED: DOCUSATE SODIUM 100 MG CAPSULE. PO SCH (21:00)
[2018-09-30] MEDS: DOCUSATE SODIUM 100 MG CAPSULE. PO SCH (21:10)
[2018-09-30] MEDS: METOPROLOL TART IMMED RELEASE 25 MG TABLET. PO SCH (21:10)
[2018-09-30] MEDS: traZODone 50 MG TABLET. PO SCH (21:10)
[2018-10-01] VITALS (7 sets, daily range): BP systolic 95–112; BP diastolic 43–72
[2018-10-01] MEDS: POTASSIUM CL 20MEQ D5-0.45NACL 1,000 ML IV SCH ×2 (01:20→14:40)
[2018-10-01] MEDS: oxyCODONE/APAP 5/325 1 TAB TABLET PO PRN ×5 (03:29→19:28)
[2018-10-01] MEDS: PANTOPRAZOLE 40 MG TABLET.DR. PO SCH (06:51)
[2018-10-01] MEDS: DULoxetine HCL 30 MG CAPSULE.DR PO SCH (07:58)
[2018-10-01] MEDS: DOCUSATE SODIUM 100 MG CAPSULE. PO SCH ×2 (07:58→20:34)
[2018-10-01] MEDS: SPIRONOLACTONE 25 MG TABLET PO SCH (08:02)
[2018-10-01] MEDS: LOSARTAN POTASSIUM 50 MG TABLET. PO SCH (08:02)
[2018-10-01] MEDS: METOPROLOL TART IMMED RELEASE 25 MG TABLET. PO SCH ×2 (08:03→20:39)
[2018-10-01] MEDS: CHOLECALCIFEROL (VITAMIN D3) 1,000 UNIT TABLET PO SCH (08:03)
[2018-10-01] MEDS ORDERED: OXYC1TAB15 PO (11:35)
[2018-10-01] MEDS ORDERED: METH750T2 PO (11:35)
[2018-10-01] MEDS: METHOCARBAMOL 750 MG TABLET PO PRN ×2 (14:46→20:35)
[2018-10-01] MEDS: traZODone 50 MG TABLET. PO SCH (20:34)
[2018-10-01] MEDS ORDERED: ATORVASTATIN CALCIUM 20 MG TABLET PO SCH (21:00)
[2018-10-02 03:11] VITALS: BP 124/73
[2018-10-02] MEDS: POTASSIUM CL 20MEQ D5-0.45NACL 1,000 ML IV SCH (04:00)
[2018-10-02] MEDS: oxyCODONE/APAP 5/325 1 TAB TABLET PO PRN ×3 (04:28→11:06)
--- NOTE | 2018-10-02 05:06 | NUR ---
Patient c/o right leg spasm and pain. medication given with ice pack to leg Addendum: 10/02/18 at 0508 by STEPHANIA GABRIEL RN Amended: Links added.
[2018-10-02 06:36] VITALS: BP 127/76
[2018-10-02] MEDS: CHOLECALCIFEROL (VITAMIN D3) 1,000 UNIT TABLET PO SCH (08:33)
[2018-10-02] MEDS: DOCUSATE SODIUM 100 MG CAPSULE. PO SCH (08:34)
[2018-10-02] MEDS: DULoxetine HCL 30 MG CAPSULE.DR PO SCH (08:34)
[2018-10-02] MEDS: PANTOPRAZOLE 40 MG TABLET.DR. PO SCH (08:34)
[2018-10-02] MEDS: LOSARTAN POTASSIUM 50 MG TABLET. PO SCH (08:36)
[2018-10-02] MEDS: METOPROLOL TART IMMED RELEASE 25 MG TABLET. PO SCH (08:41)
[2018-10-02] MEDS: SPIRONOLACTONE 25 MG TABLET PO SCH (08:41)
--- NOTE | 2018-10-02 10:00 | NUR ---
Pt ambulating in room with walker with steady gait. Significant other in room. Cont. monitor.
[2018-10-02 10:18] VITALS: BP 121/72
[2018-10-02] MEDS: METHOCARBAMOL 750 MG TABLET PO PRN (11:06)
--- NOTE | 2018-10-02 11:10 | NUR ---
Discharge instructions given with prescriptions. Answered questions and concerns. Both patient and significant other verbalized understand. Extra dressing supplies given. Pt discharge home.
[2018-10-02] MEDS ORDERED: DULO60CA6 PO (14:24)
--- NOTE | 2018-10-04 16:06 | PATHOLOGY ---
[facility] Accession Number: [id number] . 01 Material submitted: . vertebral column - LUMBAR DECOMPRESSION . 01 Clinical history: . Lumbar pseudoarthrosis, spondylolisthesis . 02 Diagnosis: Segments of fibrocartilaginous, adipose, and skeletal muscle tissue, lumbar decompression: - Degenerative changes of fibrocartilaginous tissue with focal scarring and presence of histiocytes containing pigmented foreign material. (JPM:[facility] 10/04/2018) P/10/04/2018 . 02 Comment: There is no evidence of an acute inflammatory process or malignancy. (JPM:[facility] 10/04/2018) . 02 Electronically signed: . Bernard Tavarez MD, Pathologist NPI- [id number] . 01 Gross description: . Received in formalin labeled "Black, Swati, lumbar decompression," are several pieces of glistening, fibrous tissue measuring 4.1 x 3.9 x 0.6 cm in aggregate dimensions, containing small fragments of possible bone. The tissue submitted representatively in cassette A1, following decalcification. ([facility]; 09/30/2018) TOB/TOB . 02 Pathologist provided ICD-10: M51.36 . 02 CPT . 750304, 328126 Specimen Comment: A courtesy copy of this report has been sent to Specimen Comment: [phone], . Specimen Comment: Report sent to / DR MALIN Performed at: 01 [facility] [address], [place] [id number] MD Nikolai Pugh MD Phone: [phone] Performed at: 02 [facility] [place] [id number] MD Bernard Tavarez MD Phone: [phone]
--- NOTE | 2018-10-22 17:05 | DS ---
DATE OF DISCHARGE: 10/02/2018 DATE OF SURGERY: 09/30/2018. DISCHARGE DIAGNOSES: 1. Spondylolisthesis L4-L5 and L5-S1 with motion on flexion and extension. 2. Pseudoarthrosis L4-L5. 3. Foraminal narrowing, L4-L5 right with right lumbar radiculopathy. OPERATION PERFORMED: 1. Transforaminal microdecompression L4-L5, right. 2. Removal of hardware, L4-L5. 3. Replacement of hardware L4, L5, S1. 4. Posterolateral fusion, L4, L5, S1. HISTORY OF PRESENT ILLNESS: The patient is a pleasant 73-year-old woman who developed intractable back and right leg pain which failed to improve with conservative measures. In the past, she has undergone 2 previous surgeries in the lumbar spine, most recently an instrumented lumbar fusion at another institution at L4-L5. On her subsequent imaging studies, there was evidence of loosening of hardware at L4-L5 as well as development of spondylolisthesis at L5-S1. I recommended decompression and instrumented fusion to deal with these problems. She understood the surgery, the risk and the expected postoperative course. She wished to go ahead. HOSPITAL COURSE: She was admitted to the floor postoperatively where she did well. She was up ambulating in the room and in the halls. Physical therapy was initiated and instruction was given to her regarding her activities. Her pain is well controlled, and she is in good condition to discharge home. DISCHARGE MEDICATIONS: Resume her medications per the MRAD. DISCHARGE INSTRUCTIONS: She was instructed regarding incision care, activity restrictions and expectations for the next several weeks. She will follow up in our office in 2 weeks. She understands to call with any questions or concerns. RAJ URBINA MD DR: MICHOACANO/kathleen JOB#: [id number] / [id number]
== END 2018-10-02 11:10 | disposition home or self-care (01) | DRG 460 ==
LOC: OPSVCIP 06:22 → 4 SOUTHEST 15:12
PROVIDERS: ADMIT Neurological Surgery; ATTEND Neurological Surgery
PROC: 0SG30K1 Fusion of Lumbosacral Joint with Nonautologous Tissue Substitute, Posterior Approach, Posterior Column, Open Approach (ICD-10-PCS; 2018-09-30)
PROC: 01NB0ZZ Release Lumbar Nerve, Open Approach (ICD-10-PCS; 2018-09-30)
PROC: 0SP304Z Removal of Internal Fixation Device from Lumbosacral Joint, Open Approach (ICD-10-PCS; 2018-09-30)
PROC: 4A11X4G Monitoring of Peripheral Nervous Electrical Activity, Intraoperative, External Approach (ICD-10-PCS; 2018-09-30)
PROC: 0SG00K1 Fusion of Lumbar Vertebral Joint with Nonautologous Tissue Substitute, Posterior Approach, Posterior Column, Open Approach (ICD-10-PCS; principal; 2018-09-30 08:30)
DX: M96.0 Pseudarthrosis after fusion or arthrodesis (principal); M43.17 Spondylolisthesis, lumbosacral region; I34.1 Nonrheumatic mitral (valve) prolapse; I10 Essential (primary) hypertension; M19.90 Unspecified osteoarthritis, unspecified site; M43.16 Spondylolisthesis, lumbar region; M54.16 Radiculopathy, lumbar region; Y83.8 Other surgical procedures as the cause of abnormal reaction of the patient, or of later complication, without mention of misadventure at the time of the procedure; Y92.89 Other specified places as the place of occurrence of the external cause; Z90.710 Acquired absence of both cervix and uterus; Z88.0 Allergy status to penicillin; Z88.8 Allergy status to other drugs, medicaments and biological substances; Z82.49 Family history of ischemic heart disease and other diseases of the circulatory system; Z98.1 Arthrodesis status
CPT/HCPCS: 36415; 72131; 76000; 86850; 86900; 86901; 88304; 88311; A7015; C1713; J0330; J0780; J1100; J1170; J1885; J2001; J2270; J2370; J2405; J2704; J2710; J3010; J3370; J3490; J7030; J7050; J7120; 97110; 97116; 97530

== ENCOUNTER → 2018-10-14 | Outpatient (CLI) | payer BC, MEDICARE ==
[2018-10-02 10:18] VITALS: BP 121/72
[~2018-10-14] MED LIST changes: -BACITRACIN 50,000 UNIT in IV NORMAL SALINE 1000ML BAG 1,000 ML IRR ONE; -BUPIVAC MPF-EPI 0.5%-1:200000 30 ML VIAL. ONE; +DULO60CA6 PO; -GELATIN SPONGE SIZE 100. ONE; -KETOROLAC 60 MG/2 ML INJ FOR OR. ONE; +METH750T2 PO; +OXYC1TAB15 PO; -THROMBIN TOPICAL 20,000 UNIT SPRAY.SYRN KIT TP ONE; -VANCOMYCIN 1GM IVPB FOR OMNI 250 ML IV PRN
--- NOTE | 2018-10-14 15:54 | RAD ---
Lumbar spine, 3 views, 10/14/2018: HISTORY: Postop, back pain Comparison is made to CT images from 09/30/2018. The lower lumbar posterior instrumentation has been extended since the previous study. There are now bilateral pedicle screws at L4, L5 and S1 attached to longitudinally oriented posterior fixation rods. An underlying laminectomy defect is present. There is moderate ongoing anterolisthesis at L4-5 which appears to be slightly increased in the upright position compared to the supine CT imaging. The lumbar vertebral heights are well-maintained. Moderate aortic calcific plaquing is present. IMPRESSION: 1. Interval extension of the posterior spinal fusion and instrumentation now extending from L4 through S1 bilaterally. 2. Moderate ongoing anterolisthesis at L4-5. Electronically signed by: Rai Cantu MD (10/14/2018 3:51 PM) [facility]
== END | disposition home or self-care (01) ==
LOC: RAD 11:58
PROVIDERS: ATTEND Neurological Surgery
DX: M54.89 Other dorsalgia (principal); I70.0 Atherosclerosis of aorta
CPT/HCPCS: 72100